=== PATIENT | male | born 2000 | race Two or more races ===

== ENCOUNTER 2023-12-27 16:42 | Emergency (ER) | payer OTHER ==
[~2023-12-27] VITALS: Ht 170.2 cm; Wt 68.0 kg
[2023-12-27] MEDS ORDERED: IBUPROFEN 400 MG TABLET ONE (19:43)
[2023-12-27] MEDS: IBUPROFEN 400 MG TABLET PO ONE (19:48)
[2023-12-27] MEDS ORDERED: IBUP-1490 PO (21:44)
[2023-12-27] MEDS ORDERED: ACET-2605 PO (22:30)
[2023-12-27 23:05] VITALS: BP 120/83; TEMP 97.8; O2SAT 97
== END 2023-12-27 23:06 | disposition home or self-care (01) ==
LOC: ER 16:45
DX: M85.68 Other cyst of bone, other site (principal); M25.561 Pain in right knee
CPT/HCPCS: 73564-TC; 73700-TC